=== PATIENT | female | born 1940 | race African-American/Black ===

== ENCOUNTER 2016-11-24 09:48 | Emergency (ER) | payer MEDICARE, MEDICAID ==
[~2016-11-24] VITALS: Ht 165.1 cm; Wt 70.0 kg
[~2016-11-24 09:48] MED LIST: AMLO10TA80 PO; GLYB2.5T4 PO; IRBE150T51 PO; METF10002 PO; MONT10TA21 PO
[2016-11-24] MEDS ORDERED: PREDNISONE 20MG TABLET PO STA (10:49)
[2016-11-24] MEDS ORDERED: IPRATROPIUM BROMIDE (0.02%) 0.5MG/2.5ML NEB HHN STA ×2 (10:49→11:35)
[2016-11-24] MEDS ORDERED: ALBUTEROL (0.083%) 2.5MG/3ML NEB HHN STA ×2 (10:49→11:35)
[2016-11-24 12:19] VITALS: BP 171/75
== END 2016-11-24 12:21 | disposition home or self-care (01) ==
LOC: ER 10:50
DX: J45.901 Unspecified asthma with (acute) exacerbation (principal); I10 Essential (primary) hypertension; E11.9 Type 2 diabetes mellitus without complications; Z88.0 Allergy status to penicillin; Z88.1 Allergy status to other antibiotic agents; Z88.8 Allergy status to other drugs, medicaments and biological substances
CPT/HCPCS: 71010; 94640; 99284; J7512; J7611

== ENCOUNTER 2017-05-26 11:19 | Emergency (ER) | payer MEDICARE, MEDICAID ==
[~2017-05-26] VITALS: Ht 162.6 cm; Wt 73.0 kg
[2017-05-26] MEDS ORDERED: ALBUTEROL (0.083%) 2.5MG/3ML NEB HHN STA (11:49)
[2017-05-26] MEDS ORDERED: METHYLPREDNISOLONE SOD SUCC 125 MG/2 ML VIAL IV STA (11:49)
[2017-05-26] MEDS ORDERED: IPRATROPIUM BROMIDE (0.02%) 0.5MG/2.5ML NEB HHN STA (11:49)
[2017-05-26 12:59] VITALS: BP 142/82
== END 2017-05-26 14:57 | disposition home or self-care (01) ==
LOC: ER 11:19
DX: J45.901 Unspecified asthma with (acute) exacerbation (principal); E11.9 Type 2 diabetes mellitus without complications; I10 Essential (primary) hypertension; M79.7 Fibromyalgia; Z88.0 Allergy status to penicillin; Z88.3 Allergy status to other anti-infective agents; Z88.8 Allergy status to other drugs, medicaments and biological substances
CPT/HCPCS: 71010; 94640; 96374; 99284; J2930; J7611

== ENCOUNTER 2017-12-10 14:15 | Inpatient (IN) | payer MEDICARE, MEDICAID ==
[~2017-12-10] VITALS: Ht 162.6 cm; Wt 70.8 kg
[2017-12-10 14:52] LABS: CHLORIDE 105 mEq/L (98-107)
[2017-12-10 14:54] LABS: PROTHROMBIN TIME 10.7 sec (9.4-11.6)
[2017-12-10 14:55] LABS: BASOPHILS % 0.6 % (0.0-2.0); EOSINOPHILS % 1.4 % (0.0-5.0); HEMATOCRIT. 37.3 % (36.0-48.0); HEMOGLOBIN. 11.9 g/dL (12.0-16.0); LYMPHOCYTES % 32.5 % (20.0-50.0); MEAN CORPUSCULAR HEMOGLOBIN 23.1 pg (28.0-32.0); MEAN CORPUSCULAR VOLUME 72.1 fL (81.0-99.0); MEAN PLATELET VOLUME 9.4 fl (7.4-10.4); MONOCYTES % 6.3 % (2.0-8.0); NEUTROPHILS % 59.2 % (40.0-76.0); PLATELET 264 x1000/uL (130-400); RED BLOOD CELL COUNT 5.17 mill/uL (4.2-5.4); RED CELL DISTRIBUTION WIDTH 14.8 % (11.6-14.6)
[2017-12-10] MEDS ORDERED: ASPIRIN 81MG TABLET PO STA (14:56)
[2017-12-10] MEDS ORDERED: ALBUTEROL (0.083%) 2.5MG/3ML NEB HHN STA (14:58)
[2017-12-10] MEDS ORDERED: CLOPIDOGREL 75MG TABLET PO ONE (15:15)
[2017-12-10 15:20] LABS: D-DIMER 1.23 mg/L FEU (<0.50); PARTIAL THROMBOPLASTIN TIME 24.3 sec (23.4-31.0)
[2017-12-10] MEDS: NITROGLYCERIN 0.4MG TABLET SL SL PRN ×2 (16:55→18:22)
[2017-12-10] MEDS ORDERED: IOHEXOL-350 100 ML BOTTLE ONE (17:54)
[2017-12-10] MEDS ORDERED: ALBUTEROL (0.083%) 2.5MG/3ML NEB HHN ONE (23:30)
[2017-12-11] MEDS ORDERED: DOCUSATE SODIUM 100MG CAPSULE PO PRN (00:45)
[2017-12-11] MEDS ORDERED: ONDANSETRON HCL 4MG/2ML VIAL IV PRN (00:45)
[2017-12-11] MEDS ORDERED: ACETAMINOPHEN 325MG TABLET PO PRN (00:45)
[2017-12-11] MEDS ORDERED: IPRATROPIUM/ALBUTEROL 0.5-3(2.5)MG/3ML NEB INH PRN (00:45)
[2017-12-11] MEDS ORDERED: NA PHOS,M-B/NA PHOS,DI-BA ENEMA 118ML PR PRN (00:45)
[2017-12-11] MEDS ORDERED: MORPHINE SULFATE 4 MG/ML CPJ (NOT FOR IM USE) IV PRN (00:45)
[2017-12-11] MEDS ORDERED: HYDROCODONE/ACETAMINOPHEN 5/325MG TABLET PO PRN (00:45)
[2017-12-11] MEDS ORDERED: GUAIFENESIN 200MG/10ML SUGAR FREE UDC PO PRN (00:45)
[2017-12-11] MEDS ORDERED: MAGNESIUM/ALUMINUM HYDROXIDE/SIMETHICONE 30ML UDC PO PRN (00:45)
[2017-12-11] MEDS ORDERED: CLONIDINE 0.1MG TABLET PO PRN (00:45)
[2017-12-11 01:00] VITALS: BP 137/67
[2017-12-11] MEDS ORDERED: ALBU6.7H IH (03:39)
[2017-12-11 04:00] VITALS: BP 188/90
[2017-12-11 08:00] VITALS: BP 147/75
[2017-12-11 08:45] LABS: CREATINE KINASE 357 IU/L (26-192)
[2017-12-11] MEDS: ASPIRIN 81MG EC TABLET PO SCH (08:58)
[2017-12-11] MEDS: AMLODIPINE 10MG TABLET PO SCH (08:58)
[2017-12-11] MEDS: ENOXAPARIN 40MG/0.4ML SYR SUBCUT SCH (08:59)
[2017-12-11] MEDS ORDERED: METHYLPREDNISOLONE SOD SUCC 40 MG/ML VIAL IV NR (11:30)
[2017-12-11 12:00] VITALS: BP 135/70
[2017-12-11] MEDS ORDERED: LEVOFLOXACIN 500MG PREMIX 100 ML IV SCH (14:00)
[2017-12-11 15:38] LABS: CREATINE KINASE 390 IU/L (26-192)
[2017-12-11 16:00] VITALS: BP 142/64
[2017-12-11 20:00] VITALS: BP 132/58
[2017-12-11] MEDS: BUDESONIDE 0.5MG/2ML NEB HHN SCH (20:20)
[2017-12-11] MEDS: IPRATROPIUM/ALBUTEROL 0.5-3(2.5)MG/3ML NEB HHN SCH (20:21)
[2017-12-11] MEDS: GUAIFENESIN 600MG ER TABLET PO SCH (20:56)
[2017-12-12] VITALS: BP 140/65
[2017-12-12] MEDS: IPRATROPIUM/ALBUTEROL 0.5-3(2.5)MG/3ML NEB HHN SCH ×2 (02:14→08:57)
[2017-12-12 04:00] VITALS: BP 131/65
[2017-12-12 07:31] VITALS: BP 134/70
[2017-12-12 07:51] LABS: CHLORIDE 104 mEq/L (98-107)
[2017-12-12 08:07] LABS: BASOPHILS % 0.2 % (0.0-2.0); EOSINOPHILS % 0.1 % (0.0-5.0); HEMATOCRIT. 34.5 % (36.0-48.0); HEMOGLOBIN. 11.1 g/dL (12.0-16.0); LYMPHOCYTES % 17.1 % (20.0-50.0); MEAN CORPUSCULAR HEMOGLOBIN 23.1 pg (28.0-32.0); MEAN CORPUSCULAR VOLUME 71.9 fL (81.0-99.0); MEAN PLATELET VOLUME 9.9 fl (7.4-10.4); NEUTROPHILS % 76.6 % (40.0-76.0); PLATELET 250 x1000/uL (130-400); RED CELL DISTRIBUTION WIDTH 15.1 % (11.6-14.6)
[2017-12-12 08:10] LABS: LDL CHOLESTEROL 66 mg/dL (5-100)
[2017-12-12 08:11] LABS: HDL CHOLESTEROL 79 mg/dL (40-59)
[2017-12-12] MEDS: BUDESONIDE 0.5MG/2ML NEB HHN SCH (08:57)
[2017-12-12] MEDS: ENOXAPARIN 40MG/0.4ML SYR SUBCUT SCH (09:46)
[2017-12-12] MEDS: GUAIFENESIN 600MG ER TABLET PO SCH (09:46)
[2017-12-12] MEDS: ASPIRIN 81MG EC TABLET PO SCH (09:47)
[2017-12-12] MEDS: AMLODIPINE 10MG TABLET PO SCH (09:49)
[2017-12-12 12:51] VITALS: BP 134/70
[2017-12-12] MEDS ORDERED: LEVOFLOXACIN 250MG PREMIX 50 ML IV SCH (14:00)
== END 2017-12-12 13:45 | disposition home health service (06) | DRG 189 ==
LOC: ER 14:15 → 7WST 16:48 → EDBEDREQ 16:50 → EDBEDREQTM 16:50 → ER 17:23 → ENRESERV 22:43 → SUPCPDRO 12-11 00:33 → EDBEDREQ 12-11 00:40
PROVIDERS: ADMIT Hospitalist; ATTEND Hospitalist
DX: J96.00 Acute respiratory failure, unspecified whether with hypoxia or hypercapnia (principal); J18.9 Pneumonia, unspecified organism; J45.901 Unspecified asthma with (acute) exacerbation; K80.20 Calculus of gallbladder without cholecystitis without obstruction; E11.9 Type 2 diabetes mellitus without complications; J20.9 Acute bronchitis, unspecified; I10 Essential (primary) hypertension; Z87.891 Personal history of nicotine dependence; Z88.1 Allergy status to other antibiotic agents; Z88.0 Allergy status to penicillin; Z88.8 Allergy status to other drugs, medicaments and biological substances
CPT/HCPCS: 36415; 71045; 71275; 80053; 80061; 82550; 83880; 84443; 84484; 85025; 85379; 85610; 85730; 93005; 93306; 93970; 94640; 99285; J1650; J1956; J2920; J7050; J7611; J7620; J7626; Q9967

== ENCOUNTER 2018-10-10 04:18 | Emergency (ER) | payer MEDICARE, MEDICAID ==
[~2018-10-10] VITALS: Ht 162.6 cm; Wt 68.0 kg
[~2018-10-10 04:18] MED LIST changes: +GLIM4TAB2 MT; -GLYB2.5T4 PO; -IRBE150T51 PO; +IRBE1TAB43 MT; +METF-416 PO; -METF10002 PO
[2018-10-10 05:26] LABS: CHLORIDE 103 mEq/L (98-107)
[2018-10-10 05:50] LABS: BASOPHILS % 0.7 % (0.0-2.0); EOSINOPHILS % 1.6 % (0.0-5.0); HEMATOCRIT. 39.1 % (36.0-48.0); HEMOGLOBIN. 12.4 g/dL (12.0-16.0); LYMPHOCYTES % 34.5 % (20.0-50.0); MEAN CORPUSCULAR HEMOGLOBIN 23.4 pg (28.0-32.0); MEAN CORPUSCULAR VOLUME 74.1 fL (81.0-99.0); MEAN PLATELET VOLUME 9.2 fl (7.4-10.4); MONOCYTES % 14.5 % (2.0-8.0); NEUTROPHILS % 48.7 % (40.0-76.0); PLATELET 247 x1000/uL (130-400); RED BLOOD CELL COUNT 5.28 mill/uL (4.2-5.4); RED CELL DISTRIBUTION WIDTH 14.4 % (11.6-14.6)
[2018-10-10] MEDS ORDERED: IPRATROPIUM BROMIDE (0.02%) 0.5MG/2.5ML NEB HHN STA (06:40)
[2018-10-10] MEDS ORDERED: ALBUTEROL (0.083%) 2.5MG/3ML NEB HHN STA (06:40)
[2018-10-10] MEDS ORDERED: PREDNISONE 20MG TABLET PO STA (06:40)
[2018-10-10 08:18] VITALS: BP 132/72
== END 2018-10-10 08:22 | disposition home or self-care (01) ==
LOC: ER 04:18
DX: J45.901 Unspecified asthma with (acute) exacerbation (principal); I10 Essential (primary) hypertension; E11.65 Type 2 diabetes mellitus with hyperglycemia; Z87.891 Personal history of nicotine dependence; Z88.0 Allergy status to penicillin; Z88.1 Allergy status to other antibiotic agents; Z88.8 Allergy status to other drugs, medicaments and biological substances; Z79.899 Other long term (current) drug therapy
CPT/HCPCS: 36415; 71045; 80053; 83880; 84484; 85025; 93005; 94640; 99284; J7512; J7611

== ENCOUNTER 2019-02-24 23:06 | Emergency (ER) | payer MEDICARE, MEDICAID ==
[~2019-02-24] VITALS: Ht 165.1 cm; Wt 66.0 kg
[2019-02-25 01:13] VITALS: BP 119/69
== END 2019-02-25 01:15 | disposition home or self-care (01) ==
LOC: ER 23:06
DX: F41.1 Generalized anxiety disorder (principal); I10 Essential (primary) hypertension; E11.9 Type 2 diabetes mellitus without complications; J45.909 Unspecified asthma, uncomplicated; Z87.891 Personal history of nicotine dependence; Z98.890 Other specified postprocedural states; Z88.0 Allergy status to penicillin; Z88.1 Allergy status to other antibiotic agents; Z88.6 Allergy status to analgesic agent; Z88.8 Allergy status to other drugs, medicaments and biological substances
CPT/HCPCS: 93005; 99283

== ENCOUNTER 2022-11-16 12:37 | Inpatient (IN) | payer MEDICARE, MEDICAID ==
[~2022-11-16] VITALS: Ht 165.1 cm; Wt 56.4 kg
[~2022-11-16 12:37] MED LIST changes: -GLIM4TAB2 MT; +GLIM4TAB36 MT; +MONT-46 PO; -MONT10TA21 PO
[2022-11-16] MEDS ORDERED: ASPIRIN 81MG TABLET PO ONE (13:15)
[2022-11-16 14:19] LABS: BASOPHILS % 0.6 % (0.0-2.0); EOSINOPHILS % 0.7 % (0.0-5.0); HEMATOCRIT. 36.7 % (36.0-48.0); HEMOGLOBIN. 11.7 g/dL (12.0-16.0); LYMPHOCYTES % 17.5 % (20.0-50.0); MEAN CORPUSCULAR HEMOGLOBIN 22.9 pg (28.0-32.0); MEAN CORPUSCULAR VOLUME 72.2 fL (81.0-99.0); MEAN PLATELET VOLUME 9.3 fl (7.4-10.4); MONOCYTES % 5.5 % (2.0-8.0); NEUTROPHILS % 75.7 % (40.0-76.0); PLATELET 247 x1000/uL (130-400); RED BLOOD CELL COUNT 5.09 mill/uL (4.2-5.4); RED CELL DISTRIBUTION WIDTH 14.6 % (11.6-14.6)
[2022-11-16 14:27] LABS: CHLORIDE 109 mEq/L (98-107)
[2022-11-16 20:21] LABS: T4 FREE 0.9 ng/dL (0.76-1.46)
[2022-11-16 20:46] LABS: VITAMIN B12 SERUM 358 pg/mL (211-911)
[2022-11-16 21:29] LABS: CLARITY URINE CLEAR (CLEAR); COLOR URINE YELLOW (YELLOW); PROTEIN URINE NEGATIVE (NEGATIVE); SPECIFIC GRAVITY URINE 1.011 (1.005-1.030)
[2022-11-16 21:30] LABS: KETONES URINE 1+ (NEGATIVE); LEUKOCYTE ESTERASE URINE 3+ (NEGATIVE); NITRITE URINE NEGATIVE (NEGATIVE); OCCULT BLOOD URINE TRACE (NEGATIVE); UROBILINOGEN URINE 0.2 E.U./dL (0.2-1.0)
[2022-11-16 21:44] LABS: *AMPHETAMINES SCREEN URINE NEGATIVE (NEGATIVE); *BARBITURATES SCREEN URINE NEGATIVE (NEGATIVE); *BENZODIAZEPINES SCREEN URINE NEGATIVE (NEGATIVE); *COCAINE SCREEN URINE NEGATIVE (NEGATIVE); CANNABINOID URINE SCREEN NEGATIVE (NEGATIVE); METHADONE URINE SCREEN NEGATIVE (NEGATIVE); OPIATES URINE SCREEN NEGATIVE (NEGATIVE); PHENCYCLIDINE URINE SCREEN NEGATIVE (NEGATIVE)
[2022-11-16] MEDS ORDERED: DEXTROSE 50% WATER 50ML SYRINGE IV PRN (23:15)
[2022-11-17 04:30] VITALS: BP 136/66
[2022-11-17] MEDS ORDERED: CLON0.1T PO (05:37)
[2022-11-17] MEDS ORDERED: ATOR10TA69 PO (05:37)
[2022-11-17] MEDS ORDERED: LOSA50TA41 PO (05:37)
[2022-11-17] MEDS ORDERED: SERT25TA74 PO (05:37)
[2022-11-17] MEDS ORDERED: MONT-39 PO (05:37)
[2022-11-17] MEDS ORDERED: SITA100T11 PO (05:37)
[2022-11-17] MEDS: BLOOD SUGAR DIAGNOSTIC STRIP TEST SCH ×4 (06:41→21:19)
[2022-11-17 08:00] VITALS: BP_SYST 112; BP_SYST 115; BP_SYST 118; BP_DIAS 64; BP_DIAS 76
[2022-11-17] MEDS ORDERED: SODIUM CHLORIDE 0.9% 1000ML BAG (SEPSIS BOLUS) IV SCH (08:15)
[2022-11-17] MEDS: PANTOPRAZOLE SODIUM 40 MG/VIAL IV SCH (08:27)
[2022-11-17] MEDS: INSULIN LISPRO 100 UNITS/ML SUBCUT SCH ×3 (08:29→17:33)
[2022-11-17] MEDS ORDERED: SODIUM CHLORIDE 0.9% 250 ML IV ONE (08:45)
[2022-11-17] MEDS: ENOXAPARIN 60MG/0.6ML SYR SUBCUT SCH ×2 (08:57→21:17)
[2022-11-17] MEDS ORDERED: METOPROLOL TARTRATE 25MG TABLET PO SCH ×2 (09:00→21:00)
[2022-11-17] MEDS ORDERED: ENOXAPARIN 40MG/0.4ML SYR SUBCUT SCH (09:00)
[2022-11-17] MEDS ORDERED: ACETAMINOPHEN 325MG TABLET PO PRN ×2 (10:30)
[2022-11-17] MEDS ORDERED: ONDANSETRON HCL 4MG/2ML INJ IV PRN (10:30)
[2022-11-17] MEDS ORDERED: MAGNESIUM/ALUMINUM HYDROXIDE/SIMETHICONE 30ML UDC PO PRN (10:30)
[2022-11-17] MEDS ORDERED: NA PHOS,M-B/NA PHOS,DI-BA ENEMA 118ML PR PRN (10:30)
[2022-11-17] MEDS ORDERED: ZOLPIDEM TARTRATE 5MG TABLET PO PRN (10:30)
[2022-11-17] MEDS ORDERED: DOCUSATE SODIUM 100MG CAPSULE PO PRN (10:30)
[2022-11-17] MEDS ORDERED: CLONIDINE 0.1MG TABLET PO PRN (10:30)
[2022-11-17] MEDS ORDERED: GUAIFENESIN 200MG/10ML SUGAR FREE UDC PO PRN (10:30)
[2022-11-17] MEDS ORDERED: IPRATROPIUM/ALBUTEROL 0.5-3(2.5)MG/3ML NEB NEB PRN (10:30)
[2022-11-17] MEDS ORDERED: ASPIRIN 325MG EC TABLET PO SCH (10:30)
[2022-11-17] MEDS ORDERED: NITROGLYCERIN 0.4MG TABLET SL SL PRN (10:30)
[2022-11-17 10:36] LABS: BASOPHILS % 0.5 % (0.0-2.0); EOSINOPHILS % 0.9 % (0.0-5.0); HEMATOCRIT. 37.2 % (36.0-48.0); HEMOGLOBIN. 11.8 g/dL (12.0-16.0); MEAN CORPUSCULAR HEMOGLOBIN 22.9 pg (28.0-32.0); MEAN CORPUSCULAR VOLUME 72.1 fL (81.0-99.0); MEAN PLATELET VOLUME 9.3 fl (7.4-10.4); MONOCYTES % 7.8 % (2.0-8.0); NEUTROPHILS % 66.8 % (40.0-76.0); PLATELET 248 x1000/uL (130-400); RED BLOOD CELL COUNT 5.15 mill/uL (4.2-5.4)
[2022-11-17 10:59] LABS: CHLORIDE 110 mEq/L (98-107)
[2022-11-17 11:06] LABS: CREATINE KINASE 246 IU/L (26-192); PHOSPHORUS 2.4 mg/dL (2.5-4.9)
[2022-11-17 12:00] VITALS: BP 132/82
[2022-11-17] MEDS ORDERED: LEVOFLOXACIN 500MG PREMIX 100 ML IV SCH ×2 (12:00→14:45)
[2022-11-17] MEDS ORDERED: DILTIAZEM HCL 30MG TABLET PO SCH (12:00)
[2022-11-17 12:21] LABS: HEPATITIS B SURFACE ANTIGEN NEGATIVE
[2022-11-17] MEDS ORDERED: METOPROLOL TARTRATE 5MG/5ML VIAL IV PRN (12:45)
[2022-11-17] MEDS ORDERED: POTASSIUM CHLORIDE 20MEQ TABLET SR PO NR (15:15)
[2022-11-17 16:00] VITALS: BP 130/78
[2022-11-17 18:20] LABS: INR 1.1; PROTHROMBIN TIME 11.9 sec (9.6-11.0)
[2022-11-17 20:00] VITALS: BP 136/49
[2022-11-17] MEDS ORDERED: ALBUTEROL (0.083%) 2.5MG/3ML NEB HHN PRN (21:00)
[2022-11-17] MEDS ORDERED: IPRATROPIUM BROMIDE (0.02%) 0.5MG/2.5ML NEB HHN PRN (21:00)
[2022-11-17] MEDS ORDERED: FAMOTIDINE 20MG TABLET PO SCH (21:00)
[2022-11-17] MEDS: ASCORBIC ACID 500 MG TABLET PO SCH (21:17)
[2022-11-17] MEDS: INSULIN GLARGINE 100 UNITS/ML SUBCUT SCH (21:18)
[2022-11-18] VITALS (7 sets, daily range): BP systolic 119–149; BP diastolic 50–67
[2022-11-18] MEDS: BLOOD SUGAR DIAGNOSTIC STRIP TEST SCH ×4 (06:47→21:26)
[2022-11-18] MEDS: INSULIN LISPRO 100 UNITS/ML SUBCUT SCH ×3 (07:40→18:01)
[2022-11-18] MEDS: ENOXAPARIN 60MG/0.6ML SYR SUBCUT SCH ×2 (09:00→21:26)
[2022-11-18] MEDS: PANTOPRAZOLE SODIUM 40 MG/VIAL IV SCH (09:20)
[2022-11-18] MEDS ORDERED: METOPROLOL TARTRATE 50MG TABLET PO SCH (09:20)
[2022-11-18] MEDS: ZINC SULFATE 220 MG ( 50 ) CAPSULE PO SCH (09:41)
[2022-11-18] MEDS: ASCORBIC ACID 500 MG TABLET PO SCH ×2 (09:41→21:25)
[2022-11-18] MEDS: LEVOFLOXACIN 250MG PREMIX 50 ML IV SCH (12:34)
[2022-11-18] MEDS ORDERED: METOPROLOL TARTRATE 25MG TABLET PO SCH (21:00)
[2022-11-18] MEDS: INSULIN GLARGINE 100 UNITS/ML SUBCUT SCH (21:32)
[2022-11-19] VITALS (7 sets, daily range): BP systolic 134–170; BP diastolic 51–81
[2022-11-19] MEDS: BLOOD SUGAR DIAGNOSTIC STRIP TEST SCH ×4 (06:15→22:56)
[2022-11-19] MEDS ORDERED: HEPARIN 1000 UNITS/ML 10ML ONE (07:38)
[2022-11-19] MEDS ORDERED: IODIXANOL 320MG/ML 100 ML BOTTLE IV ONE (07:38)
[2022-11-19] MEDS ORDERED: LIDOCAINE HCL/PF 1% 10 MG/ML 5ML VIAL ONE (07:38)
[2022-11-19] MEDS ORDERED: DIPHENHYDRAMINE 50MG/ML VIAL ONE (07:40)
[2022-11-19] MEDS ORDERED: VERAPAMIL HCL 2.5 MG/1 ML 2ML VIAL IV ONE (07:40)
[2022-11-19] MEDS: INSULIN LISPRO 100 UNITS/ML SUBCUT SCH ×3 (07:40→17:21)
[2022-11-19] MEDS ORDERED: FENTANYL CITRATE/PF 50MCG/ML 2ML VIAL ONE (07:58)
[2022-11-19] MEDS ORDERED: MIDAZOLAM HCL 2 MG/2 ML VIAL ONE (07:58)
[2022-11-19] MEDS ORDERED: METOPROLOL TARTRATE 5MG/5ML VIAL IV ONE ×3 (08:15→09:06)
[2022-11-19] MEDS: APIXABAN 5 MG TABLET PO SCH ×2 (09:00→17:20)
[2022-11-19] MEDS ORDERED: ACETAMINOPHEN 325MG TABLET PO PRN (09:00)
[2022-11-19] MEDS: ASCORBIC ACID 500 MG TABLET PO SCH ×2 (09:00→22:49)
[2022-11-19] MEDS: PANTOPRAZOLE SODIUM 40 MG/VIAL IV SCH (09:00)
[2022-11-19] MEDS: ZINC SULFATE 220 MG ( 50 ) CAPSULE PO SCH (09:00)
[2022-11-19] MEDS ORDERED: ATROPINE SULFATE 1MG/10ML SYR IV PRN (09:00)
[2022-11-19] MEDS: METOPROLOL TARTRATE 50MG TABLET PO SCH ×2 (09:30→22:49)
[2022-11-19] MEDS ORDERED: AMIODARONE HCL 150 MG in DEXT 5% WATER 100 ML IV NR (10:30)
[2022-11-19] MEDS ORDERED: DIGOXIN 500MCG/2ML AMP IV NR (12:00)
[2022-11-19] MEDS: LEVOFLOXACIN 250MG PREMIX 50 ML IV SCH (15:30)
[2022-11-19] MEDS ORDERED: NICARDIPINE 100MCG/ML 10ML VIAL (CATH LAB) IV ONE (16:09)
[2022-11-19] MEDS ORDERED: NITROGLYCERIN 50MCG/ML 10ML VIAL (CATH LAB) IV ONE (16:09)
[2022-11-19 17:47] LABS: CHLORIDE 107 mEq/L (98-107)
[2022-11-19] MEDS ORDERED: DIGOXIN 125MCG TABLET PO SCH (18:00)
[2022-11-19] MEDS: INSULIN GLARGINE 100 UNITS/ML SUBCUT SCH (23:04)
[2022-11-20 00:10] VITALS: BP 156/79
[2022-11-20 04:05] VITALS: BP 131/62
[2022-11-20] MEDS: BLOOD SUGAR DIAGNOSTIC STRIP TEST SCH (06:28)
[2022-11-20 06:42] LABS: CHLORIDE 107 mEq/L (98-107)
[2022-11-20 06:45] LABS: BASOPHILS % 0.2 % (0.0-2.0); EOSINOPHILS % 0.9 % (0.0-5.0); HEMATOCRIT. 34.5 % (36.0-48.0); MEAN CORPUSCULAR HEMOGLOBIN 23.4 pg (28.0-32.0); MEAN CORPUSCULAR VOLUME 73.5 fL (81.0-99.0); MEAN PLATELET VOLUME 9.5 fl (7.4-10.4); MONOCYTES % 8.1 % (2.0-8.0); NEUTROPHILS % 69.8 % (40.0-76.0); PLATELET 203 x1000/uL (130-400); RED BLOOD CELL COUNT 4.69 mill/uL (4.2-5.4); RED CELL DISTRIBUTION WIDTH 14.8 % (11.6-14.6)
[2022-11-20 07:05] LABS: DIGOXIN 0.7 ng/mL (0.9-2.0)
[2022-11-20 08:00] VITALS: BP 128/64
[2022-11-20] MEDS: METOPROLOL TARTRATE 50MG TABLET PO SCH (08:07)
[2022-11-20] MEDS: ASCORBIC ACID 500 MG TABLET PO SCH (08:07)
[2022-11-20] MEDS: ZINC SULFATE 220 MG ( 50 ) CAPSULE PO SCH (08:07)
[2022-11-20] MEDS: APIXABAN 5 MG TABLET PO SCH (08:07)
[2022-11-20] MEDS: INSULIN LISPRO 100 UNITS/ML SUBCUT SCH (08:08)
[2022-11-20] MEDS ORDERED: FAMOTIDINE 20MG TABLET PO SCH (09:00)
[2022-11-20] MEDS ORDERED: APIX5TAB PO (09:22)
[2022-11-20] MEDS ORDERED: ASPI-1406 MT (09:22)
[2022-11-20] MEDS ORDERED: DIGO-34 PO (09:22)
[2022-11-20] MEDS ORDERED: METO-539 PO (09:22)
[2022-11-20] MEDS ORDERED: FAMO-135 MT (09:56)
[2022-11-20 10:08] VITALS: BP 131/62
== END 2022-11-20 13:20 | disposition home health service (06) | DRG 287 ==
LOC: ER 12:37 → MICUSO 19:13 → SUPCPDRO 19:27 → EDBEDREQ 19:55 → EDBEDREQTM 19:55 → 7WST 11-17 04:37 → 3WST 11-19 11:36
PROVIDERS: ADMIT Internal Medicine; ATTEND Internal Medicine
PROC: 4A023N7 Measurement of Cardiac Sampling and Pressure, Left Heart, Percutaneous Approach (ICD-10-PCS; principal; 2022-11-19)
PROC: B2111ZZ Fluoroscopy of Multiple Coronary Arteries using Low Osmolar Contrast (ICD-10-PCS; 2022-11-19)
DX: I25.10 Atherosclerotic heart disease of native coronary artery without angina pectoris (principal); N39.0 Urinary tract infection, site not specified; I47.20 Ventricular tachycardia, unspecified; G90.8 Other disorders of autonomic nervous system; I48.0 Paroxysmal atrial fibrillation; I95.1 Orthostatic hypotension; D50.9 Iron deficiency anemia, unspecified; E11.65 Type 2 diabetes mellitus with hyperglycemia; I10 Essential (primary) hypertension; D72.819 Decreased white blood cell count, unspecified; J45.909 Unspecified asthma, uncomplicated; I49.3 Ventricular premature depolarization; D63.8 Anemia in other chronic diseases classified elsewhere; E11.621 Type 2 diabetes mellitus with foot ulcer; E78.00 Pure hypercholesterolemia, unspecified; L85.3 Xerosis cutis; L97.502 Non-pressure chronic ulcer of other part of unspecified foot with fat layer exposed; Z87.891 Personal history of nicotine dependence; Z91.14 Patient's other noncompliance with medication regimen; I25.2 Old myocardial infarction; Z86.73 Personal history of transient ischemic attack (TIA), and cerebral infarction without residual deficits; Z88.0 Allergy status to penicillin; Z88.1 Allergy status to other antibiotic agents
CPT/HCPCS: 36415; 71045; 80048; 80053; 80061; 80162; 80305; 81003; 82550; 82607; 82746; 82962; 83036; 83540; 83550; 83605; 83735; 83880; 84100; 84145; 84439; 84443; 84484; 85025; 86803; 87340; 93005; 93306; 93454; 93880; 93970; 97162; 97166; 97535; 99285; C1769; C1887; C1893; C9113; J0282; J1160; J1200; J1644; J1650; J1815; J1956; J2250; J3010; J3490; J7030; J7060; Q9967

== ENCOUNTER 2023-03-15 18:58 | Emergency (ER) | payer MEDICARE, MEDICAID ==
[~2023-03-15] VITALS: Ht 172.7 cm; Wt 80.0 kg
[~2023-03-15 18:58] MED LIST changes: -AMLO10TA80 PO; +APIX5TAB PO; +ASPI-1406 MT; +ATOR10TA69 PO; +DIGO-34 PO; +FAMO-135 MT; -IRBE1TAB43 MT; +LOSA50TA41 PO; +METO-396 PO; +SERT25TA74 PO; +SITA100T11 PO
[2023-03-15 19:00] VITALS: O2SAT 100
[2023-03-15] MEDS ORDERED: AMLODIPINE 10MG TABLET PO ONE (19:15)
[2023-03-15 19:30] VITALS: TEMP 98.1
[2023-03-15 19:43] LABS: BASOPHILS % 0.8 % (0.0-2.0); EOSINOPHILS % 2.9 % (0.0-5.0); HEMATOCRIT. 33.2 % (36.0-48.0); HEMOGLOBIN. 10.4 g/dL (12.0-16.0); LYMPHOCYTES % 27.3 % (20.0-50.0); MEAN CORPUSCULAR HEMOGLOBIN 22.5 pg (28.0-32.0); MEAN CORPUSCULAR VOLUME 72.1 fL (81.0-99.0); MEAN PLATELET VOLUME 9.4 fl (7.4-10.4); MONOCYTES % 8.2 % (2.0-8.0); NEUTROPHILS % 60.8 % (40.0-76.0); PLATELET 293 x1000/uL (130-400); RED BLOOD CELL COUNT 4.61 mill/uL (4.2-5.4); RED CELL DISTRIBUTION WIDTH 16.5 % (11.6-14.6)
[2023-03-15 19:45] LABS: CHLORIDE 108 mEq/L (98-107)
[2023-03-15 19:49] LABS: CLARITY URINE CLEAR (CLEAR); COLOR URINE YELLOW (YELLOW); KETONES URINE NEGATIVE (NEGATIVE); LEUKOCYTE ESTERASE URINE 2+ (NEGATIVE); NITRITE URINE NEGATIVE (NEGATIVE); OCCULT BLOOD URINE NEGATIVE (NEGATIVE); PH URINE 7.5 (4.5-8.0); PROTEIN URINE 2+ (NEGATIVE); SPECIFIC GRAVITY URINE 1.008 (1.005-1.030); UROBILINOGEN URINE 0.2 E.U./dL (0.2-1.0)
[2023-03-15 21:00] VITALS: BP 131/62; PULSE 78; RESP 15
[2023-03-25] MEDS ORDERED: GLIM2TAB30 MT (14:45)
[2023-03-25] MEDS ORDERED: OLME40TA18 MT (14:47)
[2023-03-25] MEDS ORDERED: FAMO20TA8 PO (17:49)
[2023-03-25] MEDS ORDERED: MONT-39 PO (18:16)
[2023-03-25] MEDS ORDERED: SITA100T11 PO (18:16)
[2023-03-25] MEDS ORDERED: ATOR10TA69 PO (18:16)
[2023-03-25] MEDS ORDERED: METF-874 PO (18:16)
[2023-03-25] MEDS ORDERED: DIGO125T80 PO (18:19)
[2023-03-25] MEDS ORDERED: APIX5TAB PO (18:19)
== END 2023-03-15 21:32 | disposition home or self-care (01) ==
LOC: ER 18:58
DX: R42 Dizziness and giddiness (principal); R53.1 Weakness; F41.9 Anxiety disorder, unspecified; I10 Essential (primary) hypertension
CPT/HCPCS: 36415; 71045; 80053; 81003; 84484; 85025; 93005; 99285

== ENCOUNTER 2023-11-13 19:29 | Emergency (ER) | payer MEDICARE, MEDICAID ==
[~2023-11-13] VITALS: Ht 160 cm; Wt 70.0 kg
[~2023-11-13 19:29] MED LIST changes: +AMLO5TAB88 PO; +APIX2.5T PO; -APIX5TAB PO; -ASPI-1406 MT; -DIGO-34 PO; +DIGO125T80 PO; -FAMO-135 MT; +FAMO20TA8 PO; +GLIM2TAB30 MT; -GLIM4TAB36 MT; +LOSA100T33 PO; -LOSA50TA41 PO; -METF-416 PO; +METF-874 PO; +MONT-39 PO; -MONT-46 PO; -SERT25TA74 PO
[2023-11-13 19:35] VITALS: BP 131/73; TEMP 97.9; O2SAT 100
[2023-11-13 19:38] VITALS: PULSE 89; RESP 16
[2023-11-13 20:46] LABS: BASOPHILS % 0.7 % (0.0-2.0); DIFFERENTIAL COMMENT 0; HEMATOCRIT. 34.6 % (36.0-48.0); LYMPHOCYTES % 25.4 % (20.0-50.0); MEAN CORPUSCULAR HEMOGLOBIN 23.6 pg (28.0-32.0); MEAN CORPUSCULAR HGB CONC 31.9 g/dL (31.0-37.0); MEAN CORPUSCULAR VOLUME 74.1 fL (81.0-99.0); MEAN PLATELET VOLUME 9.3 fl (7.4-10.4); NEUTROPHILS % 65.9 % (40.0-76.0); PLATELET 240 x1000/uL (130-400); RED BLOOD CELL COUNT 4.67 mill/uL (4.2-5.4); RED CELL DISTRIBUTION WIDTH 16.4 % (11.6-14.6); WHITE BLOOD COUNT 6.7 x1000/uL (4.5-11.0)
[2023-11-13 21:05] LABS: ALANINE AMINOTRANSFERASE < 7 IU/L (10-49); ALBUMIN 4.2 g/dL (3.2-4.8); ASPARTATE AMINOTRANSFERASE 14 IU/L (<34); BILIRUBIN TOTAL 0.5 mg/dL (0.1-1.0); CALCIUM 9.4 mg/dL (8.7-10.4); CARBON DIOXIDE 24 mEq/L (21-32); CHLORIDE 112 mEq/L (98-107); CREATININE 0.8 mg/dL (0.6-1.0); GLUCOSE 102 mg/dL (70-105); POTASSIUM 4.2 mEq/L (3.5-5.1); PROTEIN TOTAL 8.5 g/dL (6.0-8.3); SODIUM 141 mEq/L (136-145); TROPONIN I HIGH SENSITIVITY 8 ng/L (3.0-34); UREA NITROGEN BLOOD 8 mg/dL (9-23)
== END 2023-11-13 23:45 | disposition left against medical advice (07) ==
LOC: ER 19:29
DX: R00.2 Palpitations (principal); Z53.21 Procedure and treatment not carried out due to patient leaving prior to being seen by health care provider
CPT/HCPCS: 36415; 71045; 80053; 84484; 85025; 93005; 99281

== ENCOUNTER → 2024-04-12 | Outpatient (CLI) | payer MEDICARE, MEDICAID ==
[~2024-04-12] MED LIST changes: +METO-385 PO; -METO-396 PO
== END | disposition home or self-care (01) ==
LOC: PVL 12:35
PROVIDERS: ATTEND Internal Medicine
DX: M79.605 Pain in left leg (principal); M79.604 Pain in right leg
CPT/HCPCS: 93923